=== PATIENT | male | born 1985 | race Caucasian/White ===

== ENCOUNTER 2017-03-19 15:14 | Emergency (ER) | payer MEDICAID ==
[~2017-03-19] VITALS: Ht 170.2 cm; Wt 81.5 kg
[2017-03-19 15:18] VITALS: Ht 170.2 cm; Wt 81.5 kg
[2017-03-19] MEDS ORDERED: ACETAMINOPHEN 325 MG TAB PO ONE (17:00)
[2017-03-19] MEDS ORDERED: CEPH-443 PO (17:54)
[2017-03-19] MEDS ORDERED: SULF1TAB31 PO (17:55)
[2017-03-19] MEDS ORDERED: IBUP-1542 PO (17:56)
[2017-03-19] MEDS ORDERED: BEN25 PO (17:56)
--- NOTE | 2017-03-19 18:06 | ERD ---
ER Documentation Chief Complaint Date/Time DATE: 03/19/17 TIME: 18:02 Chief Complaint LOWERR LT PINTCHING LIKE PAIN OIN ABD X3 DAYS HPI This is a 31-year-old male presents to the ER with multiple bug bites to his abdomen that started 3 days ago. Patient states that area is very itchy and has become more painful and more red. Patient has had low-grade fevers at home. He denies abdominal pain otherwise. Pain is described as a burning sensation. Pain is nonradiating and only located to the bug bites. Patient denies any nausea vomiting or diarrhea. He has not traveled anywhere. ROS 12 point review of systems was done, all negative except per HPI. Medications Home Meds Active Scripts Diphenhydramine Hcl* (Benadryl*) 25 Mg Cap, 25 MG PO Q6, #30 CAP Prov:ABISAI COVINGTONMARGARETH Bay 03/19/17 Ibuprofen* (Ibuprofen*) 600 Mg Tablet, 600 MG PO Q6 for 5 Days, TAB Prov:DARIUSZ COVINGTON 03/19/17 Sulfamethoxazole/Trimethoprim* (Bactrim Ds* Tablet) 1 Each Tablet, 1 TAB PO BID , #14 TAB Prov:ADRIADARIUSZ Bay 03/19/17 Cephalexin* (Keflex*) 500 Mg Capsule, 500 MG PO BID for 7 Days, CAP Prov:DARIUSZ COVINGTON Phu 03/19/17 Allergies Allergies: Coded Allergies: No Known Allergy (Unverified , 03/19/17) PMhx/Soc Hx Alcohol Use: No Hx Substance Use: No Hx Tobacco Use: No Smoking Status: Never smoker Physical Exam Vitals Vital Signs Date Time Temp Pulse Resp B/P Pulse Ox O2 Delivery O2 Flow Rate FiO2 03/19/17 15:18 100.0 102 16 165/95 100 Physical Exam GENERAL: The patient is well developed and appropriate for usual state of health , in no apparent distress. HEENT: Atraumatic. CHEST: Clear to auscultation bilaterally. There are no rales, wheezes or rhonchi. HEART: Regular rate and rhythm. No murmurs, clicks, rubs or gallops. ABDOMEN: Soft, nontender and nondistended. Good bowel sounds. No rebound or guarding. No gross peritonitis. No gross organomegaly or masses. No Hill sign or McBurney point tenderness. NEURO: Alert and oriented. SKIN: Patient has multiple bug bites to his abdomen. Surrounding area of erythema. Area is warm to the touch and tender to palpation. No lymphatic streaking. Results 24 hrs Current Medications Medications (Trade) Dose Ordered Sig/Meche Route PRN Reason Start Time Stop Time Status Last Admin Dose Admin Acetaminophen (Tylenol Tab) 650 mg ONCE ONCE PO 03/19/17 17:00 03/19/17 17:01 DC 03/19/17 16:55 Procedures/MDM Differential Diagnosis: dermatitis, allergic urticaria, viral exanthem, insect bite, fungal infection ,viral exanthem, hand foot mouth disease, , impetigo, cellulitis, abscess, kennedy wendy syndrome, meningocemia, necrotizing fasciitis, myositis. Clinical suspcicion for necrotizing fasciitis or myositis is low. There are no skip lesions or pain away from the site of the rash. Clinical suspicion for kennedy wendy syndrome is low. There is not history new medication use or mucosal involvement. Patient likely has cellulitis from bug bites. He has a low-grade fever in the ER which was treated with Tylenol. Suspicion for systemic infection is low. Patient is extremely well-appearing and does not appear toxic. Patient will be sent home with Keflex, Bactrim, ibuprofen and Benadryl. Patient is to follow-up with his primary care doctor within 1-2 days return to ER sooner if symptoms worsen. My medical decision making shared with the patient he understands and agrees with plan. Departure Diagnosis: Primary Impression: Cellulitis Condition: Stable Patient Instructions: Insect Bite Additional Instructions: Llame al doctor RUFINA y chioma armando BOBO PARA DENTRO DE 1-2 TOBAR.Dgale a la secretaria que nosotros le instruimos hacer esta bobo.Avise o llame si ibrahim condicin se empeora antes de la bobo. Regresa aqui si peor o no mejor. DARIUSZ COVINGTON Mar 19, 2017 18:06
== END 2017-03-19 18:02 | disposition home or self-care (01) ==
LOC: FTE 15:14
DX: L03.311 Cellulitis of abdominal wall (principal)
CPT/HCPCS: Z7502; Z7610; 99284

== ENCOUNTER 2018-08-25 17:20 | Emergency (ER) | payer MEDICAID ==
[~2018-08-25] VITALS: Wt 86.5 kg
[~2018-08-25 17:20] MED LIST: BEN25 PO; CEPH-443 PO; IBUP-1542 PO; SULF1TAB31 PO
[2018-08-25 17:31] VITALS: BP 156/88; PULSE 91; RESP 19
[2018-08-25] MEDS ORDERED: KETOROLAC 60 MG INJ IM STA (18:38)
[2018-08-25] MEDS ORDERED: BUTA1CAP38 PO (18:42)
[2018-08-25] MEDS ORDERED: IBUP-1542 PO (18:42)
--- NOTE | 2018-08-25 18:45 | ERD ---
ER Documentation Chief Complaint Chief Complaint bib self, cc: headache x 5 days, denies trauma, no meds taken HPI 32-year-old male presents with a bitemporal headache for last 5 days. He also has pain in the back of the head radiating to the bitemporal area. Denies history of traumas, visual changes, vomiting, deficits, visual changes, additional symptoms. Denies history of migraines. He does have an additional complaint of a bald spot on the back of his head. Is been there for several months. ROS All systems reviewed and are negative except as per history of present illness. Medications Home Meds Active Scripts Yejtjbzfdr-Ipieeywmayhtf-Tgikadym* (Fioricet*) 50-300-40 Mg Capsule, 1 CAP PO Q4H PRN for tid, #14 CAP Prov:VERA MONAHAN MD 08/25/18 Ibuprofen* (Motrin*) 600 Mg Tab, 600 MG PO Q6, #20 TAB Prov:VERA MONAHAN MD 08/25/18 Diphenhydramine Hcl* (Benadryl*) 25 Mg Cap, 25 MG PO Q6, #30 CAP Prov:DARIUSZ COVINGTON 03/19/17 Ibuprofen* (Ibuprofen*) 600 Mg Tablet, 600 MG PO Q6 for 5 Days, TAB Prov:DARIUSZ COVINGTON 03/19/17 Sulfamethoxazole/Trimethoprim* (Bactrim Ds* Tablet) 1 Each Tablet, 1 TAB PO BID, #14 TAB Prov:DARIUSZ COVINGTON 03/19/17 Cephalexin* (Keflex*) 500 Mg Capsule, 500 MG PO BID for 7 Days, CAP Prov:DARIUSZ COVINGTON 03/19/17 Allergies Allergies: Coded Allergies: No Known Allergy (Unverified , 03/19/17) PMhx/Soc Medical and Surgical Hx: pt denies Medical Hx, pt denies Surgical Hx History of Surgery: No Anesthesia Reaction: No Hx Neurological Disorder: No Hx Respiratory Disorders: No Hx Cardiac Disorders: No Hx Psychiatric Problems: No Hx Miscellaneous Medical Probl: No Hx Alcohol Use: No Hx Substance Use: No Hx Tobacco Use: No Smoking Status: Never smoker FmHx Family History: No diabetes, No coronary disease, No other Physical Exam Vitals Vital Signs Date Temp Pulse Resp B/P (MAP) Pulse Ox O2 O2 Flow FiO2 Time Delivery Rate 08/25/18 98.9 91 19 156/88 100 17:31 (110) Physical Exam Const: No acute distress Head: Atraumatic. Reproducible headache in the occipital and bitemporal area. No pulsatile masses. No deformities. 2 cm area consistent with alopecia areata on the exhibit without erythema, deformities. Eyes: Normal Conjunctiva and eyes Heriberto and extraocular movements intact. ENT: Normal External Ears, Nose and Mouth. Neck: Full range of motion. No meningismus. Resp: Clear to auscultation bilaterally Cardio: Regular rate and rhythm, no murmurs Abd: Soft, non tender, non distended. Normal bowel sounds Skin: No petechiae or rashes Back: No midline or flank tenderness Ext: No cyanosis, or edema Neur: Awake and alert. Cranial nerves II through XII grossly intact. No cerebellar signs. No pronator drift. Normal gait. Psych: Normal Mood and Affect Results 24 hrs Current Medications Medications Dose Sig/Meche Start Time Status Last (Trade) Ordered Route PRN Stop Time Admin Dose Reason Admin Ketorolac 60 mg ONCE STAT 08/25/18 DC Tromethamine IM 18:38 (Toradol) 08/25/18 18:39 Procedures/MDM Patient presents with signs and symptoms of most likely tension headache. There is no signs of neurologic deficit, meningismus, or concerning symptoms. Vision is well-appearing. He will be treated with Toradol here, ibuprofen, Fioricet, primary care follow-up and return precautions. The patient was stable with no new complaints during the ER course. Clinically, there is no current evidence to suggest meningitis, sepsis, acute abdomen, pneumonia, stroke, acute coronary syndrome, pulmonary embolism, aortic dissection or any other emergent condition appearing to require further evaluation or hospitalization. Patient counseled regarding my diagnostic impression and care plan. Prior to discharge all questions answered. Pt agrees with treatment plan and understands strict return precautions. Pt is instructed to follow up with primary care provider within 24- 48 hours. Precautionary instructions provided including instructions to return to the ER if not improving or for any worsening or changing symptoms or concerns. Alopecia areata likely not related. Departure Diagnosis: Primary Impression: Headache Headache type: unspecified Headache chronicity pattern: unspecified pattern Intractability: not intractable Qualified Codes: R51 - Headache Condition: Stable Patient Instructions: Headache, Unspecified, Headache, Tension Referrals: NO PRIMARY,CARE PHYSICIAN (PCP) Additional Instructions: Examines normal hoy.probablamente tension. Cheque otro vez con ibrahim doctor primario en el proximo mckeon or regresa para mas o nueva simptomas. VERA MONAHAN MD Aug 25, 2018 18:45
== END 2018-08-25 18:55 | disposition home or self-care (01) ==
LOC: FTE 17:20
DX: R51 Headache (principal)
CPT/HCPCS: 96372; J1885; Z7502